=== PATIENT | male | born 1945 | race Caucasian/White ===

== ENCOUNTER 2017-03-10 08:31 | Emergency (ER) | payer MEDICARE, OTHER ==
[~2017-03-10] VITALS: Ht 175.3 cm; Wt 88.5 kg
[~2017-03-10 08:31] MED LIST: ASPIR 8181 MG PO; COLACE100 MG PO; COZAAR100 MG PO; CRUTCH1 EACH; NORCO 5-325 TA1 EACH PO; NORCO 7.5-3251 EACH PO; ZOCOR10 MG PO
== END 2017-03-10 10:49 | disposition home or self-care (01) ==
LOC: ED 08:31
DX: I10 Essential (primary) hypertension (principal); M25.552 Pain in left hip; M25.551 Pain in right hip; M25.562 Pain in left knee; M25.561 Pain in right knee; M25.512 Pain in left shoulder; M25.511 Pain in right shoulder; Z87.891 Personal history of nicotine dependence; Z79.82 Long term (current) use of aspirin; Z79.899 Other long term (current) drug therapy
CPT/HCPCS: 36415; 80053; 82550; 85025; 99283

== ENCOUNTER 2017-03-26 11:04 | Emergency (ER) | payer MEDICARE, OTHER ==
[~2017-03-26] VITALS: Ht 175.3 cm; Wt 90.7 kg
[2017-03-26] MEDS ORDERED: SULINDAC150 MG PO (11:18)
[2017-03-26] MEDS ORDERED: PREDNISONE5 MG PO (13:47)
== END 2017-03-26 13:57 | disposition home or self-care (01) ==
LOC: ED 11:04
DX: Z90.49 Acquired absence of other specified parts of digestive tract (principal); Z79.82 Long term (current) use of aspirin; Z79.899 Other long term (current) drug therapy
CPT/HCPCS: 80053; 82550; 85025; 85651; 86140; 99283; J7512

== ENCOUNTER 2020-03-08 11:10 | Emergency (ER) | payer MEDICARE, OTHER ==
[~2020-03-08] VITALS: Ht 175.3 cm; Wt 90.7 kg
[~2020-03-08 11:10] MED LIST changes: +GLUCOSAMINE H1500 MG PO; +MELOXICAM15 MG PO; +MULTIVITAMINS1 EAC8 PO; +PREDNISONE5 MG PO; +RANITIDINE HCL150 MG PO; +SULINDAC150 MG PO; +ULTRAM50 MG PO
--- OUTSIDE RECORDS SUMMARY | 2020-03-08 11:12 | XMS ---
PreManage Notification: DEBORAH MENDOZA Security Line Producer Events No recent Security Events currently on file CRITERIA MET - Group Notification CARE PROVIDERS There are no care providers on record at this time. Niru has no Care Guidelines for this patient. Riky VISIT COUNT (12 MO.) 1 [facility] No TOTAL 1 NOTE: Visits indicate total known visits. ED/C VISIT TRACKING (12 MO.) 03/08/2020 11:11 [facility] [place] TYPE: Emergency COMPLAINT: - SOB INPATIENT VISIT TRACKING (12 MO.) No inpatient visits to display in this time frame [id number]
--- NOTE | 2020-03-08 22:38 | EKG ---
[facility] [address] [facility] [place] [address] Signed Sinus rhythm with 1st degree AV block with premature atrial complexes with aberrant conduction Left axis deviation Incomplete right bundle branch block Abnormal ECG When compared with ECG of 08-MAR-2020 11:20, (Unconfirmed) aberrant conduction is now present Confirmed by SETH MCMAHON MD ([id number]) on 03/08/2020 10:38:50 PM Electronically Signed By: SETH MCMAHON MD 03/08/20 2238 PATIENT NAME: DEBORAH MENDOZA KYLE Electrocardiogram DATE OF : 43 PHYSICIAN: SETH MCMAHON MD REPORT #: [id number] REPORT IS CONFIDENTIAL AND NOT TO BE RELEASED WITHOUT AUTHORIZATION
--- NOTE | 2020-03-08 22:38 | EKG ---
[facility] [address] [facility] [place] [address] Signed Sinus tachycardia with 1st degree AV block Left axis deviation Incomplete right bundle branch block Septal infarct , age undetermined Abnormal ECG When compared with ECG of 29-APR-2016 11:56, Vent. rate has increased BY 38 BPM Confirmed by SETH MCMAHON MD ([id number]) on 03/08/2020 10:38:28 PM Electronically Signed By: SETH MCMAHON MD 03/08/20 2238 PATIENT NAME: DEBORAH MENDOZA KYLE Electrocardiogram DATE OF : 43 PHYSICIAN: SETH MCMAHON MD REPORT #: [id number] REPORT IS CONFIDENTIAL AND NOT TO BE RELEASED WITHOUT AUTHORIZATION
== END 2020-03-08 13:55 | disposition home or self-care (01) ==
LOC: ED 11:10
DX: I47.9 Paroxysmal tachycardia, unspecified (principal); Z20.828 Contact with and (suspected) exposure to other viral communicable diseases; R07.89 Other chest pain; I10 Essential (primary) hypertension; Z79.899 Other long term (current) drug therapy
CPT/HCPCS: 0297T; 0298T; 71045; 80053; 83880; 84484; 85025; 93005; 93010; 99285-25; C9803; U0003

== ENCOUNTER 2024-02-22 19:16 | Observation (INO) | payer MEDICARE, OTHER ==
[~2024-02-22] VITALS: Ht 175.3 cm; Wt 86.0 kg
[~2024-02-22 19:16] MED LIST changes: +CELECOXIB200 MG PO; +ELIQUIS5 MG PO; +METOPROLOL SUC100 MG PO; +VALSARTAN320 MG PO
--- OUTSIDE RECORDS SUMMARY | 2024-02-22 19:23 | XMS ---
PreManage Notification: DEBORAH MENDOZA Security Heart Surgeon Events No recent Security Events currently on file CRITERIA MET - [facility] - 2 Visits in 30 Days CARE PROVIDERS CORINNA LEONARDO [facility] 03/13/2020-Current PHONE: Unknown Niru has no Care Guidelines for this patient. Riky VISIT COUNT (12 MO.) [address] TOTAL 3 NOTE: Visits indicate total known visits. ED/UCC VISIT TRACKING (12 MO.) 02/22/2024 19:16 [facility] [place] TYPE: Emergency COMPLAINT: - FACE NUMBNESS 02/11/2024 12:25 [facility] [place] TYPE: Emergency DIAGNOSES: - Nontraumatic subarachnoid hemorrhage, unspecified - stroke symptoms 03/15/2023 12:32 [facility] [place] TYPE: Emergency COMPLAINT: - FALL DIAGNOSES: - Essential (primary) hypertension - skilled nursing (current) use of anticoagulants - Other exterminator helper (current) drug therapy - Overexertion from prolonged static or awkward postures, initial encounter - Pain in left knee - Sprain of unspecified site of left knee, initial encounter - Unspecified osteoarthritis, unspecified site INPATIENT VISIT TRACKING (12 MO.) 02/11/2024 20:46 [facility] TYPE: Neurology DIAGNOSES: - termite renewal inspector (current) use of anticoagulants - Nontraumatic subarachnoid hemorrhage, unspecified - Paroxysmal atrial fibrillation - spontaneous subarachnoid bleed [id number]
[2024-02-22] MEDS ORDERED: TADALAFIL5 M1 PO (19:27)
[2024-02-22] MEDS ORDERED: IBLOOD GLUCOSE TEST STRIP 1 EA TEST XX ONE (19:30)
[2024-02-22 19:36] LABS: BASOPHILS 1.1 % (0-2); EOSINOPHILS 0.7 % (0-6); HEMATOCRIT 43.3 % (35.0-50.0); HEMOGLOBIN 14.8 g/dL (12.0-18.0); LYMPHOCYTES 38.9 % (24-44); MCH 31.2 (27-36); MCHC 34.1 g/dl (30-36); MCV 91.4 fl (81-99); MONOCYTES 11.4 % (0-12); NEUTROPHILS 47.9 % (39-80); PLATELET COUNT 295 K/uL (140-440); RBC 4.74 M/ul (4.3-5.7); RDW 14.7 (10.5-15.0)
[2024-02-22 19:43] LABS: INR 0.99 (0.80-1.30); PROTIME 12.4 Sec (11.2-14.2)
[2024-02-22 19:49] LABS: ALBUMIN 3.9 g/dL (3.4-5.0); ALBUMIN/GLOBULIN RATIO 1.18 (1.1-2.4); ANION GAP 10.6 (7-21); BILIRUBIN, TOTAL 0.3 ng/dL (0.2-1.0); BUN/CREATININE RATIO 10.63 (6.0-28.6); CALCIUM 9.3 mg/dL (8.5-10.1); CREATININE, SERUM 0.94 mg/dL (0.70-1.30); POTASSIUM 3.6 mmol/L (3.5-5.1); PROTEIN, TOTAL 7.2 g/dL (6.4-8.2)
[2024-02-22] MEDS ORDERED: ondansetron HCL 4 MG/2 ML VIAL IV ONE (20:00)
[2024-02-22] MEDS ORDERED: ONDANSETRON 4 MG HOME.PACK SL ONE (20:00)
[2024-02-22 21:14] LABS: AMPHETAMINES, URINE NEGATIVE (NEGATIVE); BARBITURATES, URINE NEGATIVE (NEGATIVE); BENZODIAZEPINE, URINE NEGATIVE (NEGATIVE); BUPRENORPHINE, URINE NEGATIVE (NEGATIVE); CANNABINOID, URINE NEGATIVE (NEGATIVE); COCAINE, URINE NEGATIVE (NEGATIVE); ECSTASY, URINE NEGATIVE (NEGATIVE); FENTANYL, URINE NEGATIVE (NEGATIVE); METHADONE, URINE NEGATIVE (NEGATIVE); OPIATES, URINE NEGATIVE (NEGATIVE); OXYCODONE, URINE NEGATIVE (NEGATIVE); PHENCYCLIDINE, URINE NEGATIVE (NEGATIVE)
[2024-02-22 21:39] VITALS: BP 139/87
[2024-02-22 21:58] VITALS: BP 139/87
--- NOTE | 2024-02-22 22:34 | NUR ---
PATIENT ADMISSION COMPLETED. PATIENT AWAKE IN BED. DENIES ADDITIONAL NEEDS. CALL LIGHT IN REACH. BED ALARM ACTIVE.
--- NOTE | 2024-02-22 22:45 | NUR ---
MRI SCREENING COMPLETED WITH PATIENT. PATIENT DENIES ANY ADDITIONAL QUESTIONS AT THIS TIME. PATIENT DENIES ADDITIONAL NEEDS AT THIS TIME. CALL LIGHT IN REACH. BED ALARM ACTIVE.
[2024-02-23] VITALS (7 sets, daily range): BP systolic 118–148; BP diastolic 78–93
--- NOTE | 2024-02-23 00:59 | NUR ---
PATIENT ASLEEP IN BED. RESPIRATIONS EVEN AND UNLABORED. CALL LIGHT IN REACH. BED ALARM ACTIVE.
--- NOTE | 2024-02-23 02:16 | NUR ---
PATIENT AWAKE IN BED. ASSESSMENT COMPLETED. PATIENT AMBULATED TO THE BATHROOM AND BACK TO BED WITHOUT DIFFICULTY. PATIENT DENIES ADDITIONAL NEEDS AT THIS TIME. CALL LIGHT IN REACH. BED ALARM ACTIVE.
--- NOTE | 2024-02-23 04:35 | NUR ---
PATIENT ASLEEP IN BED. RESPIRATIONS EVEN AND UNLABORED. CALL LIGHT IN REACH. BED ALARM ACTIVE.
--- NOTE | 2024-02-23 05:14 | NUR ---
PATIENT AWAKE IN BED. LAB IN ROOM. PATIENT DENIES ADDITIONAL NEEDS AT THIS TIME. CALL LIGHT IN REACH. BED ALARM ACTIVE.
[2024-02-23 05:26] LABS: BASOPHILS 1.5 % (0-2); EOSINOPHILS 0.9 % (0-6); HEMATOCRIT 41.2 % (35.0-50.0); HEMOGLOBIN 14.2 g/dL (12.0-18.0); MCH 31.2 (27-36); MCHC 34.5 g/dl (30-36); MCV 90.6 fl (81-99); MONOCYTES 12.1 % (0-12); NEUTROPHILS 54.5 % (39-80); PLATELET COUNT 245 K/uL (140-440); RBC 4.55 M/ul (4.3-5.7); RDW 14.5 (10.5-15.0)
--- NOTE | 2024-02-23 05:31 | NUR ---
PT AWAKE IN BED. UP TO BR WITH MINIMAL SBA TO VOID. GAIT STEADY. BACK TO BED, TAYLOR WELL. FRESH WATER PROVIDED. PT STATES "I FEEL PRETTY GOOD THIS MORNING." NO FURTHER NEEDS. CALL LIGHT IN REACH.
[2024-02-23 05:32] LABS: ANION GAP 12.3 (7-21); BUN/CREATININE RATIO 14.1 (6.0-28.6); CALCIUM 8.8 mg/dL (8.5-10.1); CREATININE, SERUM 0.78 mg/dL (0.70-1.30); POTASSIUM 4.3 mmol/L (3.5-5.1)
--- NOTE | 2024-02-23 07:07 | NUR ---
Pt report received from RNs Vasile Nieves and Rakel Gillis
[2024-02-23] MEDS ORDERED: METOPROLOL SUCCINATE 100 MG TABCR PO SCH (09:00)
[2024-02-23] MEDS ORDERED: LOSARTAN POTASSIUM 100 MG TAB PO SCH (09:00)
--- NOTE | 2024-02-23 09:37 | NUR ---
ALERT AND ORIENTED IN BED. STATES HE LIVES ALONE IN HOUSE WITH STEPS TO GET INSIDE, NO ISSUES USING STEPS, NO OTHER STAIRS IN HOUSE. NO DME. STATES HE DRIVES AT BASELINE WITH NO ISSUES. PATIENT STATES HE HAS NO ISSUES PAYING UTILITIES, OBTAINING MEDS OR FOOD. PATIENT STATES HE HAS A CARDIOLOGY APPOINTMENT 02/25/[address] NGUYỄN AT [facility] [phone]. DENIES ANY NEEDS AT HOME.
--- NOTE | 2024-02-23 09:43 | NUR ---
CALLED DR. NGUYỄN'S NURSE, PER DR. CARTER REQUEST, TO ATTEMPT TO COORDINATE MRI WITH CARDIOLOGY TO SHUT PACER OFF FOR PROCEDURE, UNABLE TO COMPLETE AT THIS FACILITY. NO ANSWER. MESSAGE LEFT WITH REQUEST TO CALL BACK REGARDING PATIENT NEED FOR MRI.
--- NOTE | 2024-02-23 09:53 | NUR ---
MED REC COMPLETE
--- NOTE | 2024-02-23 10:09 | NUR ---
CALLED [facility] IN [facility] TO VERIFY CAPABILITES TO OBTAIN MRI WITH PACER, LEFT MESSAGE WITH CALLBACK NUMBER. CALLED [facility] IN [place], [place]. STATES THEY ARE CAPABLE OF MRI WITH PACER DEPENDING ON EQUIPMENT AND CARIOLOGIST INPUT. WILL FAX INFORMATION FOR THEM TO REVIEW.
--- NOTE | 2024-02-23 10:30 | NUR ---
NOTES FAXED TO [facility] IN [place] TO DR. NGUYỄN.
--- NOTE | 2024-02-23 10:44 | NUR ---
UR CLINICAL REVIEW: 2 MN FOR VERSALUS-MEETS OBS CRITERIA FOR CVA MEDICARE OBS 02/22/24 @ 1917 ORDER MATCHES REG NO AUTH REQUIRED FOR OBS VISIT PER MEDICARE GUIDELINES DISCHARGE TO HOME WHEN STABLE 02/24/24
--- NOTE | 2024-02-23 11:07 | NUR ---
VISITED DURING SPIRITUAL CARE ROUNDS. PT IN OVERALL GOOD SPIRITS; RELAYED INFORMATION FROM CARE TEAM. DEALERSHIP MANAGER PROVIDED SUPPORTIVE PRESENCE, HOSPITALITY, SUPPORTIVE PRESENCE, FACILITATED INTERACTION WITH THERPAY ANIMAL. PT EXPRESSED GRATITUDE, CONFIDENCE IN CARE.
[2024-02-23] MEDS ORDERED: PHARMACY RENAL DOSE ADJUSTMENT 1 DOSE MISC PO SCH (12:00)
--- NOTE | 2024-02-23 15:32 | NUR ---
CALLED [facility] AGAIN AT [phone] , NO ANSWER, CALLBACK NUMBER LEFT. ORDER REFAXED PER THEIR REQUEST WITH SIGNATURE, PRINTED NAME OF PHYSICIAN AND NPI#.
[2024-02-23] MEDS ORDERED: APIXABAN 5 MG TAB PO SCH (16:15)
--- NOTE | 2024-02-23 19:18 | EKG ---
[facility] [address] [facility] [place] [address] Signed Ventricular-paced rhythm Abnormal ECG No previous ECGs available Confirmed by Zuleyka Malone MD ([id number]) on 02/23/2024 7:18:04 PM Electronically Signed By: ZULEYKA MALONE MD 02/23/241917 PATIENT NAME: DEBORAH MENDOZA Electrocardiogram DATE OF : 43 PHYSICIAN: ZULEYKA MALONE MD REPORT #: [id number] REPORT IS CONFIDENTIAL AND NOT TO BE RELEASED WITHOUT AUTHORIZATION
== END 2024-02-23 16:55 | disposition home or self-care (01) ==
LOC: ED 19:16 → MS 19:17
PROVIDERS: Family Medicine; ADMIT Student in an Organized Health Care Education/Training Program; ATTEND Student in an Organized Health Care Education/Training Program
DX: R20.2 Paresthesia of skin (principal); I10 Essential (primary) hypertension; I48.91 Unspecified atrial fibrillation; I60.9 Nontraumatic subarachnoid hemorrhage, unspecified; M19.90 Unspecified osteoarthritis, unspecified site; F10.90 Alcohol use, unspecified, uncomplicated; Z87.891 Personal history of nicotine dependence; Z79.01 Long term (current) use of anticoagulants; Z79.899 Other long term (current) drug therapy; Z95.0 Presence of cardiac pacemaker; Z90.49 Acquired absence of other specified parts of digestive tract
CPT/HCPCS: 36415; 70450; 70496; 70498; 71045; 80048; 80053; 80307; 83735; 84484; 85025; 85610; 85730; 93005; 93010; 99285-25; G0378; J2405

== ENCOUNTER 2024-08-11 16:35 | Emergency (ER) | payer MEDICARE, OTHER ==
[~2024-08-11] VITALS: Ht 175.3 cm; Wt 88.9 kg
[~2024-08-11 16:35] MED LIST changes: +TADALAFIL5 M1 PO
[2024-08-11] MEDS ORDERED: CLOPIDOGREL75 MG PO (18:05)
[2024-08-11] MEDS ORDERED: VAZALORE81 MG (18:06)
[2024-08-11] MEDS ORDERED: CELECOXIB200 MG (18:06)
[2024-08-11 18:44] LABS: BASOPHILS 1.1 % (0-2); EOSINOPHILS 0.9 % (0-6); HEMATOCRIT 43.2 % (35.0-50.0); HEMOGLOBIN 14.8 g/dL (12.0-18.0); LYMPHOCYTES 24.9 % (24-44); MCH 29.7 (27-36); MCHC 34.2 g/dl (30-36); MCV 87.1 fl (81-99); MONOCYTES 12.1 % (0-12); PLATELET COUNT 265 K/uL (140-440); RBC 4.96 M/ul (4.3-5.7); RDW 15.8 (10.5-15.0)
[2024-08-11 18:54] LABS: INR 0.95 (0.80-1.30); PROTIME 12.3 Sec (11.2-14.2)
[2024-08-11 18:55] LABS: AMPHETAMINES, UR NEGATIVE (NEGATIVE); BARBITURATES, UR NEGATIVE (NEGATIVE); BENZODIAZEPINES, UR NEGATIVE (NEGATIVE); BUPRENORPHINE,UR NEGATIVE (NEGATIVE); COCAINE, UR NEGATIVE (NEGATIVE); MARIJUANA (THC), UR NEGATIVE (NEGATIVE); MDMA, UR NEGATIVE (NEGATIVE); METHADONE, UR NEGATIVE (NEGATIVE); METHAMPHETAMINE, UR NEGATIVE (NEGATIVE); OPIATES, UR NEGATIVE (NEGATIVE); OXYCODONE, UR NEGATIVE (NEGATIVE); PHENCYCLIDINE, UR NEGATIVE (NEGATIVE); TRICYCLIC ANTIDEPRESSANT, UR NEGATIVE (NEGATIVE)
[2024-08-11 19:01] LABS: PARTIAL THROMBOPLASTIN TIME 27.4 Sec (22.9-41.3)
[2024-08-11 19:02] LABS: ALBUMIN 4.1 g/dL (3.4-5.0); ALBUMIN/GLOBULIN RATIO 1.17 (1.1-2.4); BILIRUBIN, TOTAL 0.5 mg/dL (0.2-1.0); BUN/CREATININE RATIO 15.11 (6.0-28.6); CALCIUM 9.3 mg/dL (8.5-10.1); CREATININE, SERUM 0.86 mg/dL (0.70-1.30); PROTEIN, TOTAL 7.6 g/dL (6.4-8.2)
[2024-08-11] MEDS ORDERED: ENALAPRILAT DIHYDRATE 1.25 MG/ML VIAL IV ONE (22:15)
[2024-08-12] MEDS ORDERED: DIOVAN160 MG PO (02:49)
[2024-08-12 06:50] VITALS: BP 125/84
--- NOTE | 2024-08-12 22:52 | EKG ---
[facility] [address] [place] [address] Signed AV dual-paced rhythm Abnormal ECG When compared with ECG of 22-FEB-2024 19:41, Vent. rate has decreased BY 6 BPM Confirmed by Ori Adamson MD () on 08/12/2024 10:52:45 PM Electronically Signed By: ORI ADAMSON MD 08/12/242251 PATIENT NAME: REJIDEBORAH Electrocardiogram DATE OF : 43 PHYSICIAN: ORI ADAMSON MD REPORT #: [id number] REPORT IS CONFIDENTIAL AND NOT TO BE RELEASED WITHOUT AUTHORIZATION
== END 2024-08-12 06:50 | disposition home or self-care (01) ==
LOC: ED 16:35
PROVIDERS: Emergency Medicine
DX: I60.9 Nontraumatic subarachnoid hemorrhage, unspecified (principal); I10 Essential (primary) hypertension; Z79.899 Other long term (current) drug therapy; Z79.82 Long term (current) use of aspirin
CPT/HCPCS: 36415; 70450; 71045; 80053; 80307; 84484; 85025; 85610; 85730; 93005; 93010; 96374; 99285-25